=== PATIENT | female | born 2000 | race African-American/Black ===

== ENCOUNTER 2022-09-16 17:40 | Emergency (ER) | payer BC, SELFPAY ==
[2022-09-16] MEDS ORDERED: Dexamethasone 10 MG/ML VIAL ONE (18:11)
[2022-09-16] MEDS ORDERED: Ketorolac Tromethamine 30 MG/ML VIAL ONE (18:11)
[2022-09-16] MEDS ORDERED: cefTRIAXone\\ROCEPHIN 1 GM VIAL ONE (18:12)
[2022-09-16] MEDS ORDERED: Lidocaine 1% MPF 2 ML VIAL ONE (18:12)
[2022-09-16] MEDS ORDERED: Lidocaine 1% PF 5 ML VIAL ONE (18:12)
[2022-09-16 19:36] LABS: SARS-CoV-2 NAA Rapid Test Not Detected (NotDetected)
== END 2022-09-16 19:12 | disposition home or self-care (01) ==
LOC: CSHERS 17:40
DX: J36 Peritonsillar abscess (principal); Z20.822 Contact with and (suspected) exposure to COVID-19
CPT/HCPCS: 87081; 87430; 96372; 99283; J0696; J1100; J1885

== ENCOUNTER 2022-11-16 13:27 | Emergency (ER) | payer SELFPAY | END 2022-11-16 15:30 | disposition left against medical advice (07) | LOC: CSHERS 13:27 | DX: Z53.21 Procedure and treatment not carried out due to patient leaving prior to being seen by health care provider (principal) ==